=== PATIENT | female | born 2000 | race Caucasian/White ===

== ENCOUNTER 2018-02-13 16:26 | Emergency (ER) | payer OTHER, BC ==
[2018-02-13] MEDS: SILVER SULFADIAZINE 1% CR 50 GM JAR TOP (18:00)
== END 2018-02-13 18:06 | disposition home or self-care (01) ==
LOC: M ED 16:26
DX: O99.711 Diseases of the skin and subcutaneous tissue complicating pregnancy, first trimester (principal); L55.1 Sunburn of second degree; Z3A.12 12 weeks gestation of pregnancy
CPT/HCPCS: 99283

== ENCOUNTER → 2018-04-08 | Outpatient (CLI) | payer OTHER | LOC: M RAD 16:39 | DX: Z36.9 Encounter for antenatal screening, unspecified (principal); Z3A.19 19 weeks gestation of pregnancy | CPT/HCPCS: 76811 ==

== ENCOUNTER → 2018-05-06 | Outpatient (CLI) | payer OTHER | LOC: M RAD 16:30 | DX: Z36.2 Encounter for other antenatal screening follow-up (principal); Z3A.23 23 weeks gestation of pregnancy | CPT/HCPCS: 76816 ==

== ENCOUNTER → 2018-06-02 | Outpatient (CLI) | payer OTHER ==
[2018-06-02 18:25] LABS: BASO % 0.1 % (0.0-1.0); EOS % 0.2 % (0.0-3.0); HEMATOCRIT 27.7 % (36.0-47.0); HEMOGLOBIN 9.2 g/dl (12.0-15.5); IMMATURE GRANULOCYTE % 0.7 % (0-3.0); LYMPH # 1.3 10^3/uL (1.5-6.5); LYMPH % 12.9 % (24.0-44.0); MEAN CORPUSCULAR HEMOGLOBIN 29.6 pg (27.0-33.0); MEAN CORPUSCULAR HGB CONC 33.2 g/dl (32.0-36.5); MEAN CORPUSCULAR VOLUME 89.1 fl (80.0-96.0); MONO # 0.6 10^3/uL (0.0-0.8); NEUTROPHILS # 8.1 10^3/uL (1.8-7.7); NEUTROPHILS % 80.1 % (36.0-66.0); PLATELET COUNT, AUTOMATED 325 10^3/uL (150-450); RED BLOOD COUNT 3.11 10^6/uL (4.00-5.40); RED CELL DISTRIBUTION WIDTH 12.1 % (11.5-14.5); WHITE BLOOD COUNT 10.1 10^3/uL (4.0-10.0)
[2018-06-02 18:40] LABS: GLUCOSE CHALLENGE TEST 1 HOUR 130 MG/DL (LESS THAN 140)
[2018-06-03 08:51] LABS: TYPE AND SCREEN 1 1
== END ==
LOC: M SMT 12:54
DX: Z34.82 Encounter for supervision of other normal pregnancy, second trimester (principal)

== ENCOUNTER → 2018-06-10 | Outpatient (CLI) | payer OTHER | LOC: M RAD 09:45 | DX: Z36.89 Encounter for other specified antenatal screening (principal); O32.1XX0 Maternal care for breech presentation, not applicable or unspecified; Z3A.29 29 weeks gestation of pregnancy | CPT/HCPCS: 76816 ==

== ENCOUNTER → 2018-07-17 | Outpatient (CLI) | payer OTHER ==
[2018-07-17 07:30] LABS: GLUCOSE, FASTING 83 MG/DL (LESS THAN 95)
[2018-07-17 08:38] LABS: 1 HR GLUCOSE 152 MG/DL (LESS THAN 180)
[2018-07-17 09:45] LABS: 2 HR GLUCOSE 97 MG/DL (LESS THAN 155)
[2018-07-17 10:20] LABS: 3 HR GLUCOSE 109 MG/DL (LESS THAN 140)
== END ==
LOC: M LAB 06:27
DX: Z34.82 Encounter for supervision of other normal pregnancy, second trimester (principal); Z36.89 Encounter for other specified antenatal screening

== ENCOUNTER → 2018-07-24 | Outpatient (CLI) | payer OTHER ==
[2018-07-24 17:26] LABS: BASO % 0.3 % (0.0-1.0); EOS % 0.4 % (0.0-3.0); HEMATOCRIT 31.3 % (36.0-47.0); HEMOGLOBIN 9.8 g/dl (12.0-15.5); IMMATURE GRANULOCYTE % 1.2 % (0-3.0); LYMPH # 1.8 10^3/uL (1.5-6.5); LYMPH % 18.7 % (24.0-44.0); MEAN CORPUSCULAR HEMOGLOBIN 26.3 pg (27.0-33.0); MEAN CORPUSCULAR HGB CONC 31.3 g/dl (32.0-36.5); MEAN CORPUSCULAR VOLUME 83.9 fl (80.0-96.0); MONO # 0.5 10^3/uL (0.0-0.8); MONO % 4.9 % (0.0-5.0); NEUTROPHILS % 74.5 % (36.0-66.0); PLATELET COUNT, AUTOMATED 277 10^3/uL (150-450); RED BLOOD COUNT 3.73 10^6/uL (4.00-5.40); RED CELL DISTRIBUTION WIDTH 13.6 % (11.5-14.5); WHITE BLOOD COUNT 9.4 10^3/uL (4.0-10.0)
== END ==
LOC: M SMT 13:08
DX: O99.013 Anemia complicating pregnancy, third trimester (principal)

== ENCOUNTER → 2018-07-30 | Outpatient (REF) | payer OTHER | LOC: M LAB REF 17:07 | DX: Z34.03 Encounter for supervision of normal first pregnancy, third trimester (principal); Z36.85 Encounter for antenatal screening for Streptococcus B | CPT/HCPCS: 87186 ==

== ENCOUNTER 2018-08-25 05:23 | Inpatient (IN) | payer OTHER ==
[2018-08-25] MEDS ORDERED: LR 1,000 ML IV ×3 (05:30→10:15)
[2018-08-25] MEDS: LACTATED RINGER'S 1000 ML IV (06:00)
[2018-08-25 06:11] LABS: HEMATOCRIT 32.4 % (36.0-47.0); HEMOGLOBIN 10.4 g/dl (12.0-15.5); MEAN CORPUSCULAR HEMOGLOBIN 24.7 pg (27.0-33.0); MEAN CORPUSCULAR HGB CONC 32.1 g/dl (32.0-36.5); PLATELET COUNT, AUTOMATED 301 10^3/uL (150-450); RED BLOOD COUNT 4.21 10^6/uL (4.00-5.40); RED CELL DISTRIBUTION WIDTH 14.6 % (11.5-14.5); WHITE BLOOD COUNT 9.8 10^3/uL (4.0-10.0)
[2018-08-25] MEDS: LR 800 ML IV (07:00)
[2018-08-25] MEDS: BICITRA 30ML SOLN UDC PO (08:12)
[2018-08-25] MEDS ORDERED: IBUPROFEN 800 MG TAB PO (08:15)
[2018-08-25] MEDS ORDERED: METHYLERGONOVINE MALEATE 0.2 MG TAB PO (08:15)
[2018-08-25] MEDS ORDERED: MEASLES,MUMPS,RUBELLA VACCINE INJ (MMR-II) (90707) SC ×2 (08:15→09:45)
[2018-08-25] MEDS ORDERED: DIBUCAINE 1% OINTMENT 30GM TOP (08:15)
[2018-08-25] MEDS: LIDOCAINE 1% MDV 20ML VIAL INFIL (08:15)
[2018-08-25] MEDS ORDERED: ACETAMINOPHEN 500 MG TAB PO (08:15)
[2018-08-25] MEDS ORDERED: RHOGAM 300 MCG (1500 IU) INJ (J2790) IM (08:15)
[2018-08-25] MEDS ORDERED: DOCUSATE SODIUM 100 MG CAP PO ×2 (08:15→09:45)
[2018-08-25] MEDS ORDERED: ONDANSETRON 4MG/2ML VIAL (J2405) IV ×3 (08:15→10:15)
[2018-08-25] MEDS ORDERED: fentaNYL 100 MCG/2 ML INJECTION (J3010) As Ordered (08:28)
[2018-08-25] MEDS ORDERED: ONDANSETRON 4MG/2ML VIAL (J2405) As Ordered (08:33)
[2018-08-25] MEDS ORDERED: NALBUPHINE HCL 10 MG/ML AMP (J2300) IV (08:47)
[2018-08-25] MEDS ORDERED: NALOXONE INJ 0.4 MG/1 ML VIAL (J2310) IV ×2 (08:47)
[2018-08-25] MEDS ORDERED: BICITRA 30ML SOLN UDC PO (09:00)
[2018-08-25] MEDS: PRENATAL VITAMINS CHEWABLE TABLET PO (09:00)
[2018-08-25] MEDS ORDERED: PRENATAL VITAMINS CHEWABLE TABLET PO (09:00)
[2018-08-25] MEDS ORDERED: ePHEDrine SULFATE 25 MG/5 ML(5MG/ML) SYRINGE As Ordered (09:05)
[2018-08-25] MEDS ORDERED: PHENYLephrine HCL 500 MCG/5 ML (100MCG/ML) SYRINGE (J2370) As Ordered (09:05)
[2018-08-25] MEDS ORDERED: MORPHINE PRES-FREE INJ 10 MG/10 ML VIAL (J2274) As Ordered (09:05)
[2018-08-25] MEDS ORDERED: PERCOCET 5MG/325MG TAB PO ×2 (09:45→10:15)
[2018-08-25] MEDS ORDERED: KETOROLAC 60 MG/2 ML VIAL (J1885) As Ordered (09:49)
[2018-08-25] MEDS ORDERED: KETOROLAC 30 MG/ML VIAL (J1885) IV (10:00)
[2018-08-25] MEDS ORDERED: fentaNYL 100 MCG/2 ML INJECTION (J3010) IV (10:15)
[2018-08-25] MEDS ORDERED: MEPERIDINE INJ 25 MG/ML VIAL (J2175) IV (10:15)
[2018-08-25] MEDS ORDERED: METOCLOPRAMIDE INJ 10MG/2ML VIAL (J2765) IV (10:15)
[2018-08-25] MEDS ORDERED: OXYTOCIN 30 UNITS IN 0.9% NaCl 500ML IV BAG (J2590) As Ordered (10:19)
[2018-08-25] MEDS: OXYTOCIN DRIP 30 UNITS in APPROPRIATE DILUENT 1 EA IV (10:21)
[2018-08-25] MEDS: LR 1,000 ML IV (11:31)
[2018-08-25] MEDS: METOCLOPRAMIDE INJ 10MG/2ML VIAL (J2765) IV (11:58)
[2018-08-25] MEDS: KETOROLAC 30 MG/ML VIAL (J1885) IV ×2 (15:59→21:51)
[2018-08-26] MEDS: KETOROLAC 30 MG/ML VIAL (J1885) IV (04:10)
[2018-08-26] MEDS ORDERED: IBUPROFEN 800 MG TAB PO (06:00)
[2018-08-26 07:15] LABS: MEAN CORPUSCULAR HEMOGLOBIN 24.8 pg (27.0-33.0); MEAN CORPUSCULAR HGB CONC 31.4 g/dl (32.0-36.5); MEAN CORPUSCULAR VOLUME 78.9 fl (80.0-96.0); PLATELET COUNT, AUTOMATED 171 10^3/uL (150-450); RED BLOOD COUNT 2.66 10^6/uL (4.00-5.40); RED CELL DISTRIBUTION WIDTH 15.2 % (11.5-14.5); WHITE BLOOD COUNT 10.3 10^3/uL (4.0-10.0)
[2018-08-26 07:29] LABS: HEMOGLOBIN 6.6 g/dl (12.0-15.5)
[2018-08-26] MEDS: PRENATAL VITAMINS CHEWABLE TABLET PO (07:44)
[2018-08-26] MEDS: IBUPROFEN 800 MG TAB PO ×2 (11:57→20:38)
[2018-08-26 12:23] LABS: HEMATOCRIT 21.2 % (36.0-47.0); MEAN CORPUSCULAR HEMOGLOBIN 24.9 pg (27.0-33.0); MEAN CORPUSCULAR HGB CONC 31.6 g/dl (32.0-36.5); MEAN CORPUSCULAR VOLUME 78.8 fl (80.0-96.0); PLATELET COUNT, AUTOMATED 211 10^3/uL (150-450); RED BLOOD COUNT 2.69 10^6/uL (4.00-5.40); RED CELL DISTRIBUTION WIDTH 15.3 % (11.5-14.5); WHITE BLOOD COUNT 10.3 10^3/uL (4.0-10.0)
[2018-08-26 12:34] LABS: HEMOGLOBIN 6.7 g/dl (12.0-15.5)
[2018-08-26] MEDS: PERCOCET 5MG/325MG TAB PO (17:08)
[2018-08-26 18:13] LABS: IMMEDIATE SPIN CROSSMATCH 1 3
[2018-08-26 21:14] LABS: FETAL SCREEN PROF. 1 1
[2018-08-26] MEDS: RHOGAM 300 MCG (1500 IU) INJ (J2790) IM (21:39)
[2018-08-27] MEDS: IBUPROFEN 800 MG TAB PO (04:40)
[2018-08-27 07:58] LABS: HEMOGLOBIN 8.6 g/dl (12.0-15.5); MEAN CORPUSCULAR HEMOGLOBIN 25.7 pg (27.0-33.0); MEAN CORPUSCULAR HGB CONC 31.9 g/dl (32.0-36.5); MEAN CORPUSCULAR VOLUME 80.8 fl (80.0-96.0); PLATELET COUNT, AUTOMATED 161 10^3/uL (150-450); RED BLOOD COUNT 3.34 10^6/uL (4.00-5.40); RED CELL DISTRIBUTION WIDTH 15.5 % (11.5-14.5)
[2018-08-27] MEDS: PRENATAL VITAMINS CHEWABLE TABLET PO (07:58)
[2018-08-27] MEDS: INFLUENZA QUADRIVALENT PF VACCINE 0.5ML SYRINGE (90686) IM (07:59)
== END 2018-08-27 11:25 | disposition home or self-care (01) | DRG 788 ==
LOC: M LDI 05:23 → M OBS 11:38
PROVIDERS: Specialist
PROC: 10D00Z1 Extraction of Products of Conception, Low, Open Approach (ICD-10-PCS; principal; 2018-08-25 07:30)
PROC: 30233N1 Transfusion of Nonautologous Red Blood Cells into Peripheral Vein, Percutaneous Approach (ICD-10-PCS; 2018-08-25 07:30)
DX: O99.824 Streptococcus B carrier state complicating childbirth (principal); Z3A.39 39 weeks gestation of pregnancy; O69.82X0 Labor and delivery complicated by other cord entanglement, without compression, not applicable or unspecified; Z37.0 Single live birth

== ENCOUNTER → 2019-01-11 | Outpatient (CLI) | payer OTHER ==
[~2019-01-11] MED LIST: FERR325T3 PO; IBUP-1114 PO; OXYC1TAB23 PO; PRENMIS3 PO
[2019-01-11 18:16] LABS: BASO % 0.3 % (0.0-1.0); EOS % 0.1 % (0.0-3.0); LYMPH # 1.4 10^3/uL (1.5-6.5); LYMPH % 18.6 % (24.0-44.0); MEAN CORPUSCULAR HEMOGLOBIN 28.4 pg (27.0-33.0); MEAN CORPUSCULAR HGB CONC 33.3 g/dl (32.0-36.5); MEAN CORPUSCULAR VOLUME 85.3 fl (80.0-96.0); MONO # 0.6 10^3/uL (0.0-0.8); MONO % 7.6 % (0.0-5.0); NEUTROPHILS # 5.4 10^3/uL (1.8-7.7); NEUTROPHILS % 73.3 % (36.0-66.0); PLATELET COUNT, AUTOMATED 247 10^3/uL (150-450); RED BLOOD COUNT 4.22 10^6/uL (4.00-5.40); WHITE BLOOD COUNT 7.3 10^3/uL (4.0-10.0)
[2019-01-11 21:56] LABS: CHLAMYDIA DNA AMPLIFICATION NEGATIVE (NEGATIVE); GC DNA AMPLIFICATION NEGATIVE (NEGATIVE)
[2019-01-12 12:55] LABS: HIV 1&2 SCREEN CENTAUR NEGATIVE (NEGATIVE); RUBELLA IgG QUALITATIVE IMMUNE (IMMUNE)
[2019-01-13 10:53] LABS: HEPATITIS C VIRUS ABY INDEX 0.1 INDEX (<0.8)
== END ==
LOC: M SMT 14:52
PROVIDERS: ATTEND Advanced Practice Midwife
DX: Z34.81 Encounter for supervision of other normal pregnancy, first trimester (principal); Z3A.10 10 weeks gestation of pregnancy

== ENCOUNTER → 2019-03-16 | Outpatient (CLI) | payer OTHER ==
--- NOTE | 2019-03-16 18:41 | REP ---
Clinical: Anatomical evaluation. Comparison: None . Findings: Examination demonstrates a single live intrauterine in variable presentation. motion is identified by technologist. Placenta is noted posterior and grade grade zero without evidence for placenta previa or abruption. Amniotic fluid volume is normal. Cervix measures 4.0 cm in length and appears closed. No evidence for nuchal cord. Gestational age by LMP 19 weeks 3 days with MAGGIE 08/07/2019 . Gestational age by current measurements 18 weeks 5 day with MAGGIE 08/12/2019 . FHR equals 154 beats per minute. BPD 3.9 cm 18 weeks 0 days HC 15.4 cm 18 weeks 2 days AC 13.3 cm 18 weeks 6 days FL 3.0 cm 19 weeks 1 day HL 2.8 cm 19 weeks 0 days HC/AC ratio 1.15 Estimated weight 259 grams ( 26 percentile). Anatomical assessment demonstrates normal structures including cranium, choroid plexus, cavum, cerebellum/posterior fossa, facial features, diaphragm, stomach, three-vessel cord, kidneys/bladder, spine, and extremities. Impression: 1. Single live intrauterine in variable presentation demonstrating appropriate interval growth. 2. Limited evaluation of the lungs, heart/ventricular outflow tracts, and cord insertion may warrant reevaluation. Remainder of the anatomical assessment is complete and normal. Electronically Signed by Adam Fischer MD 03/16/2019 06:33 P
== END ==
LOC: M RAD 17:12
PROVIDERS: ATTEND Obstetrics & Gynecology
DX: Z34.82 Encounter for supervision of other normal pregnancy, second trimester (principal)

== ENCOUNTER → 2019-04-14 | Outpatient (CLI) | payer OTHER ==
--- NOTE | 2019-04-15 06:32 | REP ---
Clinical: Anatomical evaluation. Comparison: 03/16/2019 . Findings: Examination demonstrates a single live intrauterine in variable presentation. motion is identified by technologist. Placenta is noted posterior and grade zero without evidence for placenta previa or abruption. Amniotic fluid volume is normal. Cervix measures 4.3 cm in length and appears closed. Nuchal cord cannot be excluded Gestational age by LMP 23 weeks 4 days with MAGGIE 08/07/2019 . Gestational age by current measurements 22 weeks 5 days with MAGGIE 08/13/2019 . FHR equals 142 beats per minute. Estimated weight 554 grams ( 28th percentile). Anatomical assessment demonstrates normal structures including cranium, choroid plexus, cavum, cerebellum/posterior fossa, facial features, lungs, four-chamber heart/ventricular outflow tracts, diaphragm, stomach, cord insertion/three-vessel cord, kidneys/bladder, and spine. Impression: 1. A single live intrauterine in variable presentation demonstrating appropriate interval growth. 2. Nuchal cord cannot be excluded. 3. In conjunction with prior examination anatomical assessment is complete and normal. Electronically Signed by Adam Fischer MD 04/15/2019 06:23 A
== END ==
LOC: M RAD 17:35
PROVIDERS: ATTEND Obstetrics & Gynecology
DX: Z34.82 Encounter for supervision of other normal pregnancy, second trimester (principal); Z3A.22 22 weeks gestation of pregnancy

== ENCOUNTER → 2019-05-21 | Outpatient (CLI) | payer OTHER ==
[2019-05-21 13:15] LABS: HEMATOCRIT 28.4 % (36.0-47.0); MEAN CORPUSCULAR HEMOGLOBIN 26.6 pg (27.0-33.0); MEAN CORPUSCULAR HGB CONC 31.7 g/dl (32.0-36.5); PLATELET COUNT, AUTOMATED 266 10^3/uL (150-450); RED BLOOD COUNT 3.38 10^6/uL (4.00-5.40); WHITE BLOOD COUNT 7.6 10^3/uL (4.0-10.0)
== END ==
LOC: M SMT 09:09
PROVIDERS: ATTEND Obstetrics & Gynecology
DX: Z34.82 Encounter for supervision of other normal pregnancy, second trimester (principal); Z36.89 Encounter for other specified antenatal screening
CPT/HCPCS: 36415; 82950; 85027; 86850; 86900; 86901; J2790

== ENCOUNTER → 2019-07-14 | Outpatient (REF) | payer OTHER | LOC: M LAB REF 13:21 | PROVIDERS: ATTEND Advanced Practice Midwife | DX: Z34.83 Encounter for supervision of other normal pregnancy, third trimester (principal) ==

== ENCOUNTER → 2019-07-20 | Outpatient (CLI) | payer OTHER | LOC: M SMT 14:42 | PROVIDERS: ATTEND Advanced Practice Midwife | DX: Z34.83 Encounter for supervision of other normal pregnancy, third trimester (principal); Z3A.00 Weeks of gestation of pregnancy not specified ==

== ENCOUNTER 2019-08-02 09:30 | Inpatient (IN) | payer OTHER ==
[~2019-08-02] VITALS: Ht 162.6 cm; Wt 81.6 kg
[2019-08-03] VITALS (7 sets, daily range): BP systolic 97–131; BP diastolic 55–71
[2019-08-03] MEDS ORDERED: ceFAZolin SOD 2 GM in IV 1 EA IV ONE (05:30)
[2019-08-03] MEDS ORDERED: LR 800 ML IV ONE (05:30)
[2019-08-03] MEDS ORDERED: BICITRA 30ML SOLN UDC PO ONE (05:45)
[2019-08-03 05:51] LABS: HEMATOCRIT 30.4 % (36.0-47.0); HEMOGLOBIN 9.3 g/dl (12.0-15.5); MEAN CORPUSCULAR HEMOGLOBIN 23.5 pg (27.0-33.0); MEAN CORPUSCULAR HGB CONC 30.6 g/dl (32.0-36.5); PLATELET COUNT, AUTOMATED 301 10^3/uL (150-450); RED BLOOD COUNT 3.95 10^6/uL (4.00-5.40); WHITE BLOOD COUNT 6.8 10^3/uL (4.0-10.0)
[2019-08-03] MEDS ORDERED: LR 1,000 ML IV SCH ×2 (06:30→09:00)
[2019-08-03] MEDS ORDERED: MORPHINE PRES-FREE INJ 10 MG/10 ML VIAL (J2274) As Ordered ONE (07:08)
[2019-08-03] MEDS ORDERED: OXYTOCIN INJ 10 UNITS/ML VIAL (J2590) As Ordered ONE ×2 (07:09→08:02)
[2019-08-03] MEDS ORDERED: METOCLOPRAMIDE INJ 10MG/2ML VIAL (J2765) As Ordered ONE (07:16)
[2019-08-03] MEDS ORDERED: OXYC1TAB23 PO (07:28)
[2019-08-03] MEDS ORDERED: ONDANSETRON 4MG/2ML VIAL (J2405) IV PRN ×3 (07:40→09:00)
[2019-08-03] MEDS ORDERED: NALOXONE INJ 0.4 MG/1 ML VIAL (J2310) IV PRN ×2 (07:40)
[2019-08-03] MEDS ORDERED: NALBUPHINE HCL 10 MG/ML AMP (J2300) IV PRN ×2 (07:40→09:00)
[2019-08-03] MEDS ORDERED: diphenhydrAMINE INJ 50MG/ML VIAL (J1200) IV PRN (07:40)
[2019-08-03] MEDS ORDERED: METOCLOPRAMIDE INJ 10MG/2ML VIAL (J2765) IV PRN (07:40)
[2019-08-03] MEDS ORDERED: KETOROLAC 60 MG/2 ML VIAL (J1885) As Ordered ONE (07:44)
[2019-08-03] MEDS ORDERED: ONDANSETRON 4MG/2ML VIAL (J2405) As Ordered ONE (07:44)
[2019-08-03] MEDS ORDERED: MIDAZOLAM INJ 2 MG/2 ML VIAL (J2250) As Ordered ONE (08:00)
[2019-08-03] MEDS ORDERED: OXYTOCIN 30 UNITS IN 0.9% NaCl 500ML IV BAG (J2590) As Ordered ONE (08:55)
[2019-08-03] MEDS ORDERED: RHOGAM 300 MCG (1500 IU) INJ (J2790) IM SCH (09:00)
[2019-08-03] MEDS ORDERED: PERCOCET 5MG/325MG TAB PO PRN ×3 (09:00)
[2019-08-03] MEDS ORDERED: fentaNYL 100 MCG/2 ML INJECTION (J3010) IV PRN (09:00)
[2019-08-03] MEDS ORDERED: MEASLES,MUMPS,RUBELLA VACCINE INJ (MMR-II) (90707) SC SCH (09:00)
[2019-08-03] MEDS ORDERED: MEPERIDINE INJ 25 MG/ML VIAL (J2175) IV PRN (09:00)
[2019-08-03] MEDS ORDERED: HYDROMORPHONE HCL 0.5 MG/ 0.5 ML SYRINGE (J1170 PER 1) IV PRN (09:00)
[2019-08-03] MEDS ORDERED: OXYTOCIN DRIP 30 UNITS in IV 1 EA IV SCH (09:00)
[2019-08-03] MEDS: PRENATAL VITAMINS CHEWABLE TABLET PO SCH (09:00)
--- NOTE | 2019-08-03 11:48 | RO ---
DATE OF PROCEDURE: 08/03/2019 PREPROCEDURE DIAGNOSIS: 39 weeks, prior section. POSTPROCEDURE DIAGNOSIS: 39 weeks, prior section. PROCEDURE: Repeat lower transverse section. SURGEON: Dr. Herman James. PUBLICATION SPECIALIST: Bernice Moura CNM ANESTHESIA: Spinal. ESTIMATED BLOOD LOSS: 500 mL. URINE OUTPUT: 200 mL. FINDINGS: 2920 gram, 6 pound 7 ounce female. scores 9 and 10. Nuchal cord times one. Subtle bicornuate uterus present. Baby in the right horn of the uterus. DESCRIPTION OF PROCEDURE: Patient taken to the operating room where spinal anesthesia was induced. She was prepped and draped in a sterile fashion in the supine position. A Lucero catheter was placed. A Pfannenstiel skin incision made with a scalpel and carried through the fascia. The fascia was nicked and extended. The fascia was dissected off the rectus muscles. The peritoneal cavity was entered. A bladder flap was created. A curvilinear incision was made in the lower uterine segment until clear fluid was noted. This was extended manually. The was delivered in the vertex position after reducing the nuchal cord. The shoulders delivered with ease. The cord was doubly clamped and cut. The infant was handed off to the awaiting nurses. The placenta was expressed. The uterus was closed with #0 Vicryl in a running locked fashion. A second imbricating layer of #0 Vicryl was placed. The uterus was placed back in the abdominal cavity. The peritoneum was closed with #2-0 Vicryl in a running fashion. The fascia was closed with #0 Vicryl. Deep layer was irrigated and closed with #2-0 chromic. The skin was closed with #4-0 Monocryl subcuticular sutures. Sponge, instrument and needle counts were correct. Bernice Moura CNM assisted throughout the procedure. She was indispensable to the successful performance of this procedure. She helped create all layers of the incision, she helped expel the fetus and closure of all subsequent layers.
[2019-08-03] MEDS: KETOROLAC 30 MG/ML VIAL (J1885) IV SCH ×2 (14:55→19:41)
[2019-08-04 02:00] VITALS: BP 125/68
[2019-08-04] MEDS: KETOROLAC 30 MG/ML VIAL (J1885) IV SCH (02:05)
[2019-08-04 06:00] VITALS: BP 115/67
[2019-08-04 07:06] LABS: HEMATOCRIT 25.9 % (36.0-47.0); HEMOGLOBIN 7.8 g/dl (12.0-15.5); MEAN CORPUSCULAR HEMOGLOBIN 23.5 pg (27.0-33.0); MEAN CORPUSCULAR HGB CONC 30.1 g/dl (32.0-36.5); PLATELET COUNT, AUTOMATED 197 10^3/uL (150-450); RED BLOOD COUNT 3.32 10^6/uL (4.00-5.40); WHITE BLOOD COUNT 8.7 10^3/uL (4.0-10.0)
[2019-08-04] MEDS: PRENATAL VITAMINS CHEWABLE TABLET PO SCH (09:27)
[2019-08-04] MEDS: IBUPROFEN 800 MG TAB PO SCH ×2 (09:28→17:57)
[2019-08-04 10:00] VITALS: BP 128/68
[2019-08-04 18:04] VITALS: BP 122/69
[2019-08-05] MEDS: IBUPROFEN 800 MG TAB PO SCH (02:05)
[2019-08-05 06:00] VITALS: BP 131/62
--- NOTE | 2019-08-05 07:32 | DSES ---
DATE OF ADMISSION: 08/03/2019 DATE OF DISCHARGE: 08/05/2019 DISCHARGE DIAGNOSES: Repeat section at term, postop day 2, stable. Anemia. SURGEON: Dr. Herman James RISK CONTROL MANAGER: Bernice Moura, certified nurse club room attendant. Teetee underwent a repeat section at 39+ weeks. Her surgery was uncomplicated. She had an estimated blood loss of 500 mL. She delivered a female weighing 6 pounds 7 ounces, 2920 grams, scores 9 and 10. Her postoperative course has been uncomplicated. She has no complaints today. She is voiding without difficulty, passing flatus. She has been out of bed for self care, sherlyn care and infant care. She is tolerating fluids and regular diet. Her pain has been well managed with p.o. pain medications. She is bottle feeding her infant. She does request discharge to home. OBJECTIVE: Temperature 97.5, pulse 73, respirations 20, BP is 131/62. She is alert and oriented times three. She is smiling and talkative. Preoperative CBC on 08/03/2019 hemoglobin 9.3, hematocrit 30.4, platelets 301. Postoperative CBC 08/05/2019 hemoglobin 7.8, hematocrit 25.9 and platelets 197. She does deny any dizziness, heart palpitations, headaches, and shortness of breath. Her breasts are soft, nontender. Fundus firm at one fingerbreadth below umbilicus. Her incision is covered with Optifoam dressing that is dry and intact. There appears to be no drainage noted. Perineum is intact. Lochia rubra scant. Bilateral lower extremities with 1+ edema. PLAN: Discharge the patient home today. I did review discharge instructions with the patient that include breast care, incision care, sherlyn care, pelvic rest, activity and lifting restrictions, danger signs which to report to her provider and access to care. She is to followup at [facility] for a two week incision check and an eight week visit. Prescriptions for pain medications have been E-prescribed by Dr. Herman James to her pharmacy. The patient and her partner's questions have been answered and she does request discharge today.
[2019-08-05] MEDS: PRENATAL VITAMINS CHEWABLE TABLET PO SCH (09:00)
== END 2019-08-05 09:45 | disposition home or self-care (01) | DRG 788 ==
LOC: M LDI 08-03 04:57 → M OBS 08-03 10:05
PROVIDERS: ADMIT Specialist; ATTEND Specialist
PROC: 10D00Z1 Extraction of Products of Conception, Low, Open Approach (ICD-10-PCS; principal; 2019-08-03 07:30)
DX: O34.211 Maternal care for low transverse scar from previous cesarean delivery (principal); Z3A.39 39 weeks gestation of pregnancy; O69.81X0 Labor and delivery complicated by cord around neck, without compression, not applicable or unspecified; Z37.0 Single live birth; O99.03 Anemia complicating the puerperium; D64.9 Anemia, unspecified

== ENCOUNTER → 2020-05-25 | Emergency (ER) | payer OTHER ==
[~2020-05-25] MED LIST changes: +ACETAMINOPHEN 325 MG TAB As Ordered ONE; +ACETAMINOPHEN 325 MG TAB ONE; +atenoloL 25 MG TAB As Ordered ONE; +atenoloL 25 MG TAB ONE; +cefTRIAXone SOD 2 GM VIAL (J0696 PER 250MG) As Ordered ONE; +cefTRIAXone SOD 2 GM VIAL (J0696 PER 250MG) ONE
[2020-07-09 04:46] LABS: APPEARANCE, URINE CLOUDY (CLEAR); BACTERIA, URINE AUTO 1+ (NEGATIVE); BILIRUBIN, URINE AUTO NEGATIVE (NEGATIVE); BLOOD, URINE BLOOD 3+ (NEGATIVE); COLOR, URINE YELLOW (YELLOW); GLUCOSE, URINE (UA) AUTO NEGATIVE (NEGATIVE); KETONE, URINE AUTO 1+ mg/dL (NEGATIVE); LEUKOCYTE ESTERASE, URINE AUTO 1+ (NEGATIVE); MUCUS, URINE SMALL (NEGATIVE); NITRITE, URINE AUTO POSITIVE (NEGATIVE); PROTEIN, URINE AUTO 2+ mg/dL (NEGATIVE); RBC, URINE AUTO 156 /HPF (0-3); SPECIFIC GRAVITY URINE AUTO 1.019 (1.002-1.035); SQUAMOUS EPITHELIAL CELL UR AU 2 /HPF (0-6); UROBILINOGEN, URINE AUTO 0.2 mg/dL (0.0-2.0); WBC, URINE AUTO 40 /HPF (0-3)
[2020-07-09 05:01] LABS: BASO % 0.1 % (0.0-1.0); HEMATOCRIT 36.1 % (36.0-47.0); HEMOGLOBIN 11.4 g/dl (12.0-15.5); LYMPH # 0.8 10^3/uL (1.5-5.0); LYMPH % 4.3 % (24.0-44.0); MEAN CORPUSCULAR HEMOGLOBIN 25.2 pg (27.0-33.0); MEAN CORPUSCULAR HGB CONC 31.6 g/dl (32.0-36.5); MEAN CORPUSCULAR VOLUME 79.9 fl (80.0-96.0); MONO # 1.4 10^3/uL (0.0-0.8); MONO % 7.5 % (0.0-5.0); NEUTROPHILS # 15.9 10^3/uL (1.5-8.5); NEUTROPHILS % 87.5 % (36.0-66.0); PLATELET COUNT, AUTOMATED 224 10^3/uL (150-450); RED BLOOD COUNT 4.52 10^6/uL (4.00-5.40); WHITE BLOOD COUNT 18.2 10^3/uL (4.0-10.0)
[2020-08-14 17:16] LABS: ALBUMIN 3.4 GM/DL (3.2-5.2); ALT/SGPT 15 U/L (12-78); BILIRUBIN,TOTAL 0.4 MG/DL (0.2-1.0); BLOOD UREA NITROGEN 14 MG/DL (7-18); CARBON DIOXIDE LEVEL 24 MEQ/L (21-32); CHLORIDE LEVEL 98 MEQ/L (98-107); CREATININE FOR GFR 1.14 MG/DL (0.55-1.30); GLOMERULAR FILTRATION RATE > 60.0 (>60); GLUCOSE, FASTING 106 MG/DL (70-100); SODIUM LEVEL 131 MEQ/L (136-145); TOTAL PROTEIN 7.6 GM/DL (6.4-8.2)
[2020-08-14 17:24] LABS: HCG, SERUM QUALITATIVE NEGATIVE (NEGATIVE)
== END | disposition home or self-care (01) ==
LOC: M ED 09:35
DX: N39.0 Urinary tract infection, site not specified (principal); R11.10 Vomiting, unspecified
CPT/HCPCS: 80053; 81001; 83605; 84703; 85025; 87040; 87088; 87186; 96361; 96374; 99284; J0696

== ENCOUNTER → 2022-03-22 | Outpatient (CLI) | payer OTHER ==
[~2022-03-22] MED LIST changes: -ACETAMINOPHEN 325 MG TAB As Ordered ONE; -ACETAMINOPHEN 325 MG TAB ONE; -atenoloL 25 MG TAB As Ordered ONE; -atenoloL 25 MG TAB ONE; -cefTRIAXone SOD 2 GM VIAL (J0696 PER 250MG) As Ordered ONE; -cefTRIAXone SOD 2 GM VIAL (J0696 PER 250MG) ONE
[2022-03-22 14:42] LABS: BASO % 0.3 % (0.0-1.0); EOS % 0.5 % (0.0-3.0); HEMATOCRIT 33.1 % (36.0-47.0); HEMOGLOBIN 10.9 g/dl (12.0-15.5); LYMPH # 1.6 10^3/uL (1.5-5.0); LYMPH % 24.8 % (24.0-44.0); MEAN CORPUSCULAR HGB CONC 32.9 g/dl (32.0-36.5); MONO # 0.4 10^3/uL (0.0-0.8); MONO % 6.9 % (2.0-8.0); NEUTROPHILS # 4.3 10^3/uL (1.5-8.5); NEUTROPHILS % 66.9 % (36.0-66.0); PLATELET COUNT, AUTOMATED 255 10^3/uL (150-450); RED BLOOD COUNT 3.76 10^6/uL (4.00-5.40); WHITE BLOOD COUNT 6.4 10^3/uL (4.0-10.0)
[2022-03-22 16:26] LABS: GC DNA AMPLIFICATION NEGATIVE (NEGATIVE)
[2022-03-22 16:39] LABS: HEPATITIS C VIRUS ABY INDEX 0.1 INDEX (<0.8); HIV 1&2 SCREEN CENTAUR NEGATIVE (NEGATIVE)
== END ==
LOC: M PLALAB 10:38
PROVIDERS: ATTEND Advanced Practice Midwife
DX: O34.211 Maternal care for low transverse scar from previous cesarean delivery (principal); Z3A.00 Weeks of gestation of pregnancy not specified

== ENCOUNTER → 2022-04-05 | Outpatient (CLI) | payer OTHER | LOC: M WHC 13:00 | PROVIDERS: ATTEND Advanced Practice Midwife | DX: O34.211 Maternal care for low transverse scar from previous cesarean delivery (principal) ==

== ENCOUNTER → 2022-07-01 | Outpatient (CLI) | payer OTHER | LOC: M PLALAB 08:21 | PROVIDERS: ATTEND Obstetrics & Gynecology | DX: O34.211 Maternal care for low transverse scar from previous cesarean delivery (principal) ==

== ENCOUNTER → 2022-07-02 | Outpatient (CLI) | payer OTHER ==
[2022-07-02 18:03] LABS: HEMATOCRIT 30.6 % (36.0-47.0); HEMOGLOBIN 9.1 g/dl (12.0-15.5); MEAN CORPUSCULAR HEMOGLOBIN 23.6 pg (27.0-33.0); MEAN CORPUSCULAR HGB CONC 29.7 g/dl (32.0-36.5); MEAN CORPUSCULAR VOLUME 79.3 fl (80.0-96.0); PLATELET COUNT, AUTOMATED 275 10^3/uL (150-450); RED BLOOD COUNT 3.86 10^6/uL (4.00-5.40); WHITE BLOOD COUNT 8.4 10^3/uL (4.0-10.0)
== END ==
LOC: M PLALAB 13:10
PROVIDERS: ATTEND Obstetrics & Gynecology
DX: O34.211 Maternal care for low transverse scar from previous cesarean delivery (principal)

== ENCOUNTER → 2022-07-02 | Outpatient (REF) | payer OTHER | LOC: M SFHCWAGY 17:01 | PROVIDERS: ATTEND Advanced Practice Midwife | DX: Z34.93 Encounter for supervision of normal pregnancy, unspecified, third trimester (principal) ==

== ENCOUNTER → 2022-07-25 | Outpatient (CLI) | payer OTHER ==
[~2022-07-25] MED LIST changes: +FERR325T82 PO
== END ==
LOC: M LABSMTC 09:13
PROVIDERS: ATTEND Anesthesiology
DX: Z01.812 Encounter for preprocedural laboratory examination (principal); Z20.822 Contact with and (suspected) exposure to COVID-19

== ENCOUNTER 2022-07-30 05:21 | Inpatient (IN) | payer OTHER ==
[~2022-07-30] VITALS: Ht 162.6 cm; Wt 82.4 kg
[2022-07-30] VITALS (8 sets, daily range): BP systolic 109–158; BP diastolic 57–90
[2022-07-30] MEDS ORDERED: LACTATED RINGER'S 1000 ML IV STA (05:38)
[2022-07-30] MEDS ORDERED: BICITRA 30ML SOLN UDC PO ONE (05:40)
[2022-07-30 05:56] LABS: HEMATOCRIT 30.5 % (36.0-47.0); HEMOGLOBIN 9.2 g/dl (12.0-15.5); MEAN CORPUSCULAR HEMOGLOBIN 22.8 pg (27.0-33.0); MEAN CORPUSCULAR HGB CONC 30.2 g/dl (32.0-36.5); MEAN CORPUSCULAR VOLUME 75.5 fl (80.0-96.0); PLATELET COUNT, AUTOMATED 256 10^3/uL (150-450); RED BLOOD COUNT 4.04 10^6/uL (4.00-5.40); WHITE BLOOD COUNT 7.4 10^3/uL (4.0-10.0)
[2022-07-30] MEDS ORDERED: ceFAZolin SOD 2 GM in IV 1 EA IV ONE (06:30)
[2022-07-30] MEDS ORDERED: LR 1,000 ML IV SCH ×2 (07:00→11:05)
[2022-07-30] MEDS ORDERED: PHENYLephrine 500MCG 5ML (100MCG/ML) SYRINGE As Ordered ONE (07:13)
[2022-07-30] MEDS ORDERED: MORPHINE PRES-FREE INJ 10 MG/10 ML VIAL As Ordered ONE (07:13)
[2022-07-30] MEDS ORDERED: ePHEDrine SULFATE 25 MG/5 ML(5MG/ML) SYRINGE As Ordered ONE (07:13)
[2022-07-30] MEDS ORDERED: OXYTOCIN 30 UNITS IN 0.9% NaCl 500ML IV BAG (J2590) As Ordered ONE ×2 (07:13→11:46)
[2022-07-30] MEDS ORDERED: KETOROLAC 60MG 2ML VIAL As Ordered ONE (10:34)
[2022-07-30] MEDS ORDERED: ONDANSETRON 4MG 2ML VIAL As Ordered ONE (10:34)
[2022-07-30] MEDS ORDERED: **NOTE PATIENT COMMENT** MISC XX SCH (11:05)
[2022-07-30] MEDS ORDERED: ONDANSETRON 4MG 2ML VIAL IV PRN ×2 (11:05→16:00)
[2022-07-30] MEDS ORDERED: HYDROMORPHONE HCL 0.5 MG/ 0.5 ML SYRINGE (J1170 PER 1) IV PRN (11:05)
[2022-07-30] MEDS ORDERED: diphenhydrAMINE 50MG/ML VIAL (J1200) IV PRN (11:05)
[2022-07-30] MEDS ORDERED: fentaNYL 100 MCG/2 ML INJECTION IV PRN (11:05)
[2022-07-30] MEDS ORDERED: MEPERIDINE INJ 25 MG/ML VIAL (J2175) IV PRN (11:05)
[2022-07-30] MEDS ORDERED: oxyCODONE 5MG TAB PO PRN (11:05)
[2022-07-30] MEDS ORDERED: NALOXONE INJ 0.4MG/1ML VIAL (J2310 PER 1MG) IV PRN ×2 (11:05)
[2022-07-30] MEDS ORDERED: METOCLOPRAMIDE INJ 10MG/2ML VIAL (J2765 PER 1) IV PRN (11:05)
[2022-07-30] MEDS ORDERED: RHOGAM 300 MCG (1500 IU) INJ (J2790) IM SCH (11:30)
[2022-07-30] MEDS ORDERED: MOM 30ML SUSPENSION UDC PO PRN (11:30)
[2022-07-30] MEDS ORDERED: SIMETHICONE 80MG CHEW TAB PO PRN (11:30)
[2022-07-30] MEDS ORDERED: PERCOCET 5MG/325MG TAB PO PRN ×2 (11:30)
[2022-07-30] MEDS ORDERED: OXYTOCIN DRIP 30 UNITS in IV 1 EA IV SCH (11:30)
[2022-07-30] MEDS: SLF 3 ML SYR IV SCH ×2 (13:07→19:05)
[2022-07-30] MEDS: LR 1,000 ML IV SCH ×3 (13:17→23:14)
[2022-07-30] MEDS ORDERED: LR 1,000 ML IV ONE (16:00)
[2022-07-30] MEDS: KETOROLAC 30 MG/ML 1ML VIAL IV SCH ×2 (17:30→23:14)
[2022-07-30] MEDS: DOCUSATE SODIUM 100MG CAPSULE PO SCH (20:05)
[2022-07-31] VITALS (17 sets, daily range): BP systolic 109–135; BP diastolic 56–82
[2022-07-31] MEDS: SLF 3 ML SYR IV SCH (03:05)
[2022-07-31] MEDS: KETOROLAC 30 MG/ML 1ML VIAL IV SCH (05:15)
[2022-07-31 07:21] LABS: MEAN CORPUSCULAR HEMOGLOBIN 23.4 pg (27.0-33.0); MEAN CORPUSCULAR HGB CONC 30.5 g/dl (32.0-36.5); MEAN CORPUSCULAR VOLUME 76.9 fl (80.0-96.0); PLATELET COUNT, AUTOMATED 194 10^3/uL (150-450); RED BLOOD COUNT 2.73 10^6/uL (4.00-5.40); WHITE BLOOD COUNT 10.2 10^3/uL (4.0-10.0)
[2022-07-31 07:27] LABS: HEMOGLOBIN 6.4 g/dl (12.0-15.5)
[2022-07-31] MEDS: DOCUSATE SODIUM 100MG CAPSULE PO SCH ×3 (08:44→20:56)
[2022-07-31] MEDS: PRENATAL VITAMINS CHEWABLE TABLET PO SCH (08:44)
[2022-07-31] MEDS ORDERED: ACETAMINOPHEN 500 MG TAB PO ONE (09:00)
[2022-07-31] MEDS ORDERED: diphenhydrAMINE 50MG CAP PO ONE (09:00)
[2022-07-31] MEDS: IBUPROFEN 800 MG TAB PO SCH ×2 (13:25→20:56)
[2022-07-31 23:26] LABS: HEMATOCRIT 24.7 % (36.0-47.0); HEMOGLOBIN 7.8 g/dl (12.0-15.5); MEAN CORPUSCULAR HEMOGLOBIN 24.3 pg (27.0-33.0); MEAN CORPUSCULAR HGB CONC 31.6 g/dl (32.0-36.5); MEAN CORPUSCULAR VOLUME 76.9 fl (80.0-96.0); PLATELET COUNT, AUTOMATED 209 10^3/uL (150-450); RED BLOOD COUNT 3.21 10^6/uL (4.00-5.40); WHITE BLOOD COUNT 10.7 10^3/uL (4.0-10.0)
[2022-08-01 02:00] VITALS: BP 116/63
[2022-08-01] MEDS: IBUPROFEN 800 MG TAB PO SCH (05:12)
[2022-08-01 06:00] VITALS: BP 126/74
[2022-08-01] MEDS ORDERED: PERCOCET PO (07:43)
[2022-08-01] MEDS ORDERED: COLA100C5 PO (07:43)
[2022-08-01] MEDS ORDERED: IBUP80TA PO (07:43)
[2022-08-01] MEDS: DOCUSATE SODIUM 100MG CAPSULE PO SCH (08:54)
[2022-08-01] MEDS: PRENATAL VITAMINS CHEWABLE TABLET PO SCH (08:54)
[2022-08-01] MEDS ORDERED: MEASLES,MUMPS,RUBELLA VACCINE INJ (MMR-II) (90707) SC.IMMUN ONE (09:00)
[2022-08-01] MEDS ORDERED: INFLUENZA QUADRIVALENT PF VACCINE 0.5ML SYRINGE IM.IMMUN ONE (09:00)
== END 2022-08-01 10:47 | disposition home or self-care (01) | DRG 788 ==
LOC: M LDI 05:21 → M OBS 12:52
PROVIDERS: ADMIT Obstetrics & Gynecology; ATTEND Obstetrics & Gynecology
PROC: 10D00Z1 Extraction of Products of Conception, Low, Open Approach (ICD-10-PCS; principal; 2022-07-30 07:30)
PROC: 30233N1 Transfusion of Nonautologous Red Blood Cells into Peripheral Vein, Percutaneous Approach (ICD-10-PCS; 2022-07-31)
DX: O34.211 Maternal care for low transverse scar from previous cesarean delivery (principal); O32.1XX0 Maternal care for breech presentation, not applicable or unspecified; O99.02 Anemia complicating childbirth; D64.9 Anemia, unspecified; Z3A.39 39 weeks gestation of pregnancy; Z37.0 Single live birth

== ENCOUNTER → 2024-11-05 | Outpatient (CLI) | payer OTHER ==
[~2024-11-05] MED LIST changes: +COLA100C5 PO; +IBUP80TA PO; +PERCOCET PO
[2024-11-05 10:42] LABS: HEMATOCRIT 36.7 % (36.0-47.0); HEMOGLOBIN 12.2 g/dl (12.0-15.5); MEAN CORPUSCULAR HGB CONC 33.2 g/dl (32.0-36.5); MEAN CORPUSCULAR VOLUME 87.4 fl (80.0-96.0); PLATELET COUNT, AUTOMATED 237 10^3/uL (150-450); WHITE BLOOD COUNT 5.7 10^3/uL (4.0-10.0)
[2024-11-05 11:44] LABS: HIV 1&2 SCREEN NEGATIVE (NEGATIVE)
[2024-11-05 11:54] LABS: HEPATITIS C VIRUS ABY INDEX < 0.02 INDEX (<0.8)
[2024-11-05 12:45] LABS: GC DNA AMPLIFICATION NEGATIVE (NEGATIVE)
== END ==
LOC: M PLALAB 08:33
PROVIDERS: ATTEND Specialist
DX: Z34.81 Encounter for supervision of other normal pregnancy, first trimester (principal)

== ENCOUNTER → 2024-12-01 | Outpatient (CLI) | payer OTHER | LOC: M RAD 08:29 | PROVIDERS: ATTEND Obstetrics & Gynecology | DX: Z34.82 Encounter for supervision of other normal pregnancy, second trimester (principal) ==

== ENCOUNTER → 2025-01-07 | Outpatient (CLI) | payer OTHER | LOC: M WHC 10:26 | PROVIDERS: ATTEND Nurse Practitioner Family | DX: Z34.82 Encounter for supervision of other normal pregnancy, second trimester (principal) ==

== ENCOUNTER → 2025-02-15 | Outpatient (CLI) | payer OTHER | LOC: M WHC 08:53 | PROVIDERS: ATTEND Nurse Practitioner Family | DX: Z34.80 Encounter for supervision of other normal pregnancy, unspecified trimester (principal) ==

== ENCOUNTER → 2025-02-22 | Outpatient (CLI) | payer OTHER ==
[2025-02-22 10:58] LABS: HEMATOCRIT 30.7 % (36.0-47.0); HEMOGLOBIN 9.7 g/dl (12.0-15.5); MEAN CORPUSCULAR HEMOGLOBIN 26.3 pg (27.0-33.0); MEAN CORPUSCULAR HGB CONC 31.6 g/dl (32.0-36.5); MEAN CORPUSCULAR VOLUME 83.2 fl (80.0-96.0); PLATELET COUNT, AUTOMATED 269 10^3/uL (150-450); RED BLOOD COUNT 3.69 10^6/uL (4.00-5.40); WHITE BLOOD COUNT 7.1 10^3/uL (4.0-10.0)
[2025-02-22 11:23] LABS: GLUCOSE CHALLENGE TEST 1 HOUR 83 MG/DL (LESS THAN 140)
[2025-02-22 11:53] LABS: HIV 1&2 SCREEN NEGATIVE (NEGATIVE)
[2025-02-22 12:00] LABS: HEPATITIS C VIRUS ABY INDEX < 0.02 INDEX (<0.8)
[2025-02-22 12:29] LABS: Trichomonas vaginalis (AMP) NOT DETECTED (NEGATIVE)
[2025-02-22 12:53] LABS: GC DNA AMPLIFICATION NEGATIVE (NEGATIVE)
== END ==
LOC: M PLALAB 08:07
PROVIDERS: ATTEND Specialist
DX: Z34.82 Encounter for supervision of other normal pregnancy, second trimester (principal)

== ENCOUNTER → 2025-04-21 | Outpatient (REF) | payer OTHER ==
[~2025-04-21] MED LIST changes: +MULTTAB20 PO
== END ==
LOC: M SFHCWAGY 17:03
PROVIDERS: ATTEND Specialist
DX: Z36.85 Encounter for antenatal screening for Streptococcus B (principal); Z3A.36 36 weeks gestation of pregnancy

== ENCOUNTER 2025-05-09 06:41 | Inpatient (IN) | payer OTHER ==
[2025-05-09] VITALS (9 sets, daily range): BP systolic 111–152; BP diastolic 59–78; TEMP 97.1–98.2; O2SAT 97–100
[~2025-05-09] VITALS: Ht 162.6 cm; Wt 96.1 kg
[2025-05-09] MEDS ORDERED: HOME MED LIST COMPLETE! XX SCH (07:20)
[2025-05-09 08:34] LABS: PLATELET COUNT, AUTOMATED 252 10^3/uL (150-450)
[2025-05-09] MEDS: LR 1,000 ML IV SCH ×2 (08:51→14:10)
[2025-05-09] MEDS: LACTATED RINGER'S 1000 ML IV STA (08:51)
[2025-05-09 09:30] LABS: HIV 1&2 SCREEN NEGATIVE (NEGATIVE)
[2025-05-09 09:37] LABS: HEPATITIS C VIRUS ABY INDEX < 0.02 INDEX (<0.8)
[2025-05-09] MEDS: BICITRA 30 ML SOLN UDC PO ONE (11:41)
[2025-05-09] MEDS: ceFAZolin SODIUM 2 GM in DEXTROSE 5% (D5W) ADV/MINI-BAG 50 ML IV ONE (11:41)
[2025-05-09] MEDS ORDERED: MORPHINE PRES-FREE INJ 10 MG/10 ML VIAL As Ordered ONE (11:51)
[2025-05-09] MEDS ORDERED: KETOROLAC 30 MG/ML 1 ML VIAL As Ordered ONE (11:55)
[2025-05-09] MEDS ORDERED: dexAMETHasone 4 MG/ML 1 ML VIAL As Ordered ONE (11:55)
[2025-05-09] MEDS ORDERED: OXYTOCIN 30UNITS IN 0.9% NaCl 500ML IV BAG As Ordered ONE (11:55)
[2025-05-09] MEDS ORDERED: ONDANSETRON 4MG 2ML VIAL As Ordered ONE (11:55)
[2025-05-09] MEDS ORDERED: ACETAMINOPHEN 1000MG/100ML IV BAG As Ordered ONE (11:55)
[2025-05-09 13:52] LABS: CORD GAS ABE A -1.4; CORD GAS HCO3 A 25.3 MMOL/L; CORD GAS O2 SAT A 18.8 %; CORD GAS PCO2 A 49.5 mmHg; CORD GAS PH A 7.326 UNITS; CORD GAS PO2 A 11.0 mmHg; CORD GAS SBC A 21.2 MMOL/L; CORD GAS TCO2 A 26.8 MMOL/L
[2025-05-09 13:53] LABS: CORD GAS ABE V -1.1; CORD GAS HCO3 V 23.8 MMOL/L; CORD GAS O2 SAT V 58.9 %; CORD GAS PCO2 V 40.7 mmHg; CORD GAS PH V 7.385 UNITS; CORD GAS PO2 V 23.1 mmHg; CORD GAS SBC V 22.5 MMOL/L; CORD GAS TCO2 V 25.1 MMOL/L
[2025-05-09] MEDS ORDERED: SIMETHICONE 80MG CHEW TAB PO PRN (14:10)
[2025-05-09] MEDS ORDERED: PERCOCET 5MG/325MG TAB PO PRN ×2 (14:10)
[2025-05-09] MEDS ORDERED: DOCUSATE SODIUM 100 MG CAPSULE PO PRN (14:10)
[2025-05-09] MEDS ORDERED: NALOXONE INJ 0.4 MG/1 ML VIAL IV PRN ×2 (16:10)
[2025-05-09] MEDS ORDERED: HYDROMORPHONE HCL 0.5 MG/0.5 ML SYRINGE IV PRN (16:10)
[2025-05-09] MEDS ORDERED: **NOTE PATIENT COMMENT** MISC XX SCH (16:10)
[2025-05-09] MEDS: SLF 3 ML SYR IV SCH (16:10)
[2025-05-09] MEDS ORDERED: ONDANSETRON 4MG 2ML VIAL IV PRN (16:10)
[2025-05-09] MEDS: diphenhydrAMINE 50 MG/ML VIAL IV PRN (16:42)
[2025-05-09] MEDS ORDERED: ONDANSETRON 4MG 2ML VIAL IV SCH (18:00)
[2025-05-09] MEDS: ONDANSETRON 4MG 2ML VIAL IV PRN (18:40)
[2025-05-09] MEDS: KETOROLAC 30 MG/ML 1 ML VIAL IV SCH (19:53)
[2025-05-10 02:00] VITALS: BP 107/56; O2SAT 98
[2025-05-10 05:43] VITALS: BP 119/56; O2SAT 98
[2025-05-10 07:27] LABS: PLATELET COUNT, AUTOMATED 215 10^3/uL (150-450)
[2025-05-10] MEDS: PRENATAL VITAMINS CHEWABLE TABLET PO SCH (07:38)
[2025-05-10 10:00] VITALS: BP 128/72; O2SAT 99
[2025-05-10] MEDS: RHOGAM 300MCG (1500IU) INJ IM SCH (10:19)
[2025-05-10] MEDS: ACETAMINOPHEN 500 MG TAB PO PRN (13:11)
[2025-05-10 14:00] VITALS: BP 130/70; O2SAT 97
[2025-05-10] MEDS: IBUPROFEN 800 MG TAB PO SCH (15:53)
[2025-05-10 18:00] VITALS: BP 140/73; O2SAT 98
[2025-05-10 22:00] VITALS: BP 121/65; O2SAT 98
[2025-05-11 01:58] VITALS: BP 136/63; O2SAT 99
[2025-05-11] MEDS ORDERED: IBUP80TA PO (05:57)
[2025-05-11] MEDS ORDERED: COLA100C5 PO (05:57)
[2025-05-11 06:00] VITALS: BP 131/89; O2SAT 100
[2025-05-11] MEDS: MEASLES,MUMPS,RUBELLA VACCINE INJ (MMR-II) SC.IMMUN ONE (09:00)
[2025-05-11 10:00] VITALS: BP 135/69; O2SAT 98
== END 2025-05-11 16:55 | disposition home or self-care (01) | DRG 788 ==
LOC: M LDI 06:41 → M OBS 15:55
PROVIDERS: ADMIT Specialist; ATTEND Specialist
PROC: 10D00Z1 Extraction of Products of Conception, Low, Open Approach (ICD-10-PCS; principal; 2025-05-09 13:10)
DX: O34.211 Maternal care for low transverse scar from previous cesarean delivery (principal); Z3A.39 39 weeks gestation of pregnancy; Z37.0 Single live birth